=== PATIENT | female | born 1960 | race Caucasian/White ===

== ENCOUNTER → 2017-04-12 | Outpatient (CLI) | payer OTHER | LOC: GIMAGING 11:59 | PROVIDERS: ATTEND Nurse Practitioner Family | DX: J18.9 Pneumonia, unspecified organism (principal) | CPT/HCPCS: 71020-PO ==

== ENCOUNTER 2017-04-14 19:05 | Inpatient (IN) | payer OTHER ==
[2017-04-14] MEDS ORDERED: NS 1,000 ML IV ONE (19:14)
--- NOTE | 2017-04-14 19:16 | EDPHY ---
H & P Time Seen by Provider: 04/14/17 19:05 HPI/ROS: CHIEF COMPLAINT: Pneumonia HISTORY OF PRESENT ILLNESS: Patient is a 56-year-old female who is brought by EMS for shortness of breath and pneumonia. She states that over the last week she has developed a cough and shortness of breath. She saw her doctor a few days ago who started her on azithromycin and Ventolin and diagnosed pneumonia on x-ray. She does not have any history of COPD or asthma or respiratory disease. Cardiac history. She states that her symptoms have continued to worsen. Today when EMS arrived her room air sats were 86%. Her blood pressure was borderline low. She was not tachycardic. Mom states that she has been weak and fell at home. She hit her head on the cabinet and has a small abrasion to the right parietal area that is not require sutures. REVIEW OF SYSTEMS: Constitutional: denies: chills, fever, recent illness, recent injury EENTM: denies: blurred vision, double vision, nose congestion Respiratory: See HPI Cardiac: denies: chest pain, irregular heart rate, lightheadedness, palpitations Gastrointestinal/Abdominal: denies: abdominal pain, diarrhea, nausea, vomiting, blood streaked stools Genitourinary: denies: dysuria, frequency, hematuria, pain Musculoskeletal: denies: joint pain, muscle pain Skin: denies: lesions, rash, jaundice, bruising Neurological: denies: headache, numbness, paresthesia, tingling, dizziness, weakness Hematologic/Lymphatic: denies: blood clots, easy bleeding, easy bruising Immunologic/allergic: denies: HIV/AIDS, transplant EXAM: GENERAL: Well-appearing, well-nourished and in no acute distress. HEAD: Very small laceration to right parietal area. Does not require sutures. No hematoma or crepitus. EYES: Pupils equal round and reactive to light, extraocular movements intact, sclera anicteric, conjunctiva are normal. ENT: TMs normal, nares patent, oropharynx clear without exudates. Moist mucous membranes. NECK: Normal range of motion, supple without lymphadenopathy or JVD. LUNGS: Left lower lobe rhonchi HEART: Regular rate and rhythm without murmurs, rubs or gallops. ABDOMEN: Soft, nontender, normoactive bowel sounds. No guarding, no rebound. No masses appreciated. BACK: No CVA tenderness, no spinal tenderness, step-offs or deformities EXTREMITIES: Normal range of motion, no pitting or edema. No clubbing or cyanosis. NEUROLOGICAL: Cranial nerves II through XII grossly intact. Normal speech, normal gait. 5/5 strength, normal movement in all extremities, normal sensation PSYCH: Normal mood, normal affect. SKIN: Warm, dry, normal turgor, no visible rashes or lesions. Source: Patient Exam Limitations: No limitations - Medical/Surgical History Hx Asthma: No Hx Chronic Respiratory Disease: No Hx Diabetes: Yes Hx Cardiac Disease: No Hx Renal Disease: No Hx Cirrhosis: No Hx Alcoholism: No Other PMH: Bipolar, pre diabetes - Family History Significant Family History: No pertinent family hx - Social History Smoking Status: Never smoked Alcohol Use: Sober Drug Use: None Constitutional: Initial Vital Signs Temperature (C) 37.7 C 04/14/17 19:14 Heart Rate 73 04/14/17 19:14 Respiratory Rate 14 04/14/17 19:14 Blood Pressure 79/52 L 04/14/17 19:14 O2 Sat (%) 87 L 04/14/17 19:14 O2 Delivery Mode Nasal Cannula O2 (L/minute) 2 Allergies/Adverse Reactions: tape Allergy (Uncoded 04/14/17 19:19) Home Medications: Medication Instructions Recorded Clozapine 04/14/17 Divalproex 04/14/17 LaMICtal 04/14/17 Latuda 04/14/17 Levothyroxine 04/14/17 Martin'S Additions Carbonate 04/14/17 Metformin HCl 04/14/17 Metoprolol Succinate 04/14/17 Zyprexa 04/14/17 Medical Decision Making - Diagnostics Imaging Results: Imaging Impressions Chest X-Ray 04/14/17 19:12 Impression: Worsening left lower lobe pneumonia. Imaging: I viewed and interpreted images myself Procedures: Procedure: Ultrasound guidance: Using the linear probe covered in a sterile sheath, a short axis of the vein was obtained. The vein was completely compressible and was identified as separate from the adjacent non-compressible arterial structure. Under real-time guidance, the introducer needle was observed up to the vein, and then punctured it. These images were saved on the database. Central line placement: The indication for the procedure was sepsis shock. After verbal informed consent from patient; the risks were explained including bleeding, infection, and collapsed lung. Maximal sterile barrier technique was uses including cap, gown, sterile gloves, large sheet, hand washing and chlorhexidine prep. The area anesthetized with 1% lidocaine. The right IJ was punctured with a 19 gauge finder needle, then a wire introducer was placed, a triple-lumen was placed using Seldinger technique. There were no complications. Blood return low pressure, dark blood. The patient tolerated procedure well. CXR results: Line in good placement as interpreted by myself. Radiologist interpretation is pending. The procedure was performed by myself. ED Course/Re-evaluation: the patient is in septic shock. She is remaining hypotensive despite 2 and 0.5 L of fluid. Her blood pressure is currently 87/60. I have placed a central line and will start her on Levophed. I spoke with Dr. Dione Caballero who will admit to the medical service. She is a community-acquired pneumonia. Differential Diagnosis: Partial list of the Differential diagnosis considered include but were not limited to pneumonia, septic shock, and although unlikely based on the history and physical exam, I also considered is PE, is acute coronary disease, COPD. Critical Care Time: Critical care time spent by me, Dr. Gambino exclusive with this patient was 35 minutes, exclusive of the PA time exclusive of procedures. The organ system that was at risk was pulmonary and I gave IV fluids, antibiotics, pressors, central line, consultation and admission to prevent worsening of the patient's condition - Data Points Laboratory Results: Laboratory Results 04/14/17 19:11 04/14/17 19:11 04/14/17 04/14/17 04/14/17 19:25 19:11 19:11 WBC RBC Hgb Hct MCV MCH MCHC RDW Plt Count MPV Neut % (Auto) Lymph % (Auto) [place] % (Auto) Eos % (Auto) Baso % (Auto) Nucleat RBC Rel Count Absolute Neuts (auto) Absolute Lymphs (auto) Absolute Monos (auto) Absolute Eos (auto) Absolute Basos (auto) Absolute Nucleated RBC Immature Gran % Seg Neutrophils % Band Neutrophils % Lymphocytes % Monocytes % Metamyelocytes % Immature Gran # Absolute Seg Neuts Absolute Band Neuts Absolute Lymphocytes Absolute Monocytes Absolute Metamyelocyte RBC/WBC/PLT Morphology Atypical Lymphocytes Platelet Estimate PT 12.7 SEC SEC (12.0-15.0) INR 0.96 (0.83-1.16) APTT 25.5 SEC SEC (23.0-38.0) VBG Lactic Acid 1.8 mmol/L mmol/L (0.7-2.1) Sodium 128 mEq/L L mEq/L (134-144) Potassium 5.4 mEq/L H mEq/L (3.5-5.2) Chloride 96 mEq/L L mEq/L (97-110) Carbon Dioxide 25 mEq/l mEq/l (22-31) Anion Gap 7 mEq/L L mEq/L (8-16) BUN 30 mg/dL H mg/dL (7-23) Creatinine 3.5 mg/dL H mg/dL (0.6-1.0) Estimated GFR 14 Glucose 110 mg/dL H mg/dL (70-100) Calcium 8.3 mg/dL L mg/dL (8.5-10.4) Total Bilirubin 0.5 mg/dL mg/dL (0.1-1.4) 04/14/17 19:11 WBC 24.91 10^3/uL H 10^3/uL (3.80-9.50) RBC 3.62 10^6/uL L 10^6/uL (4.18-5.33) Hgb 11.1 g/dL L g/dL (12.6-16.3) Hct 33.9 % L % (38.0-47.0) MCV 93.6 fL fL (81.5-99.8) MCH 30.7 pg pg (27.9-34.1) MCHC 32.7 g/dL g/dL (32.4-36.7) RDW 14.2 % % (11.5-15.2) Plt Count 240 10^3/uL 10^3/uL (150-400) MPV 9.0 fL fL (8.7-11.7) Neut % (Auto) Not Reported Lymph % (Auto) Not Reported [place] % (Auto) Not Reported Eos % (Auto) Not Reported Baso % (Auto) Not Reported Nucleat RBC Rel Count 0.0 % % (0.0-0.2) Absolute Neuts (auto) Not Reported Absolute Lymphs (auto) Not Reported Absolute Monos (auto) Not Reported Absolute Eos (auto) Not Reported Absolute Basos (auto) Not Reported Absolute Nucleated RBC 0.00 10^3/uL 10^3/uL (0-0.01) Immature Gran % Not Reported Seg Neutrophils % 61 % % Band Neutrophils % 22 % % Lymphocytes % 14 % % Monocytes % 2 % % Metamyelocytes % 1 % % Immature Gran # Not Reported Absolute Seg Neuts 15.20 10^/uL H 10^/uL (1.70-6.50) Absolute Band Neuts 5.48 10^3/uL H 10^3/uL (0.00-0.70) Absolute Lymphocytes 3.49 10^3/uL H 10^3/uL (1.00-3.00) Absolute Monocytes 0.50 10^3/uL 10^3/uL (0.30-0.80) Absolute Metamyelocyte 0.25 10^3/mL H 10^3/mL (0.00-0.00) RBC/WBC/PLT Morphology NORMAL (NORMAL) Atypical Lymphocytes 1+ H Platelet Estimate ADEQUATE (ADEQ) PT INR APTT VBG Lactic Acid Sodium Potassium Chloride Carbon Dioxide Anion Gap BUN Creatinine Estimated GFR Glucose Calcium Total Bilirubin Medications Given: Discontinued Medications Sodium Chloride (Ns) 1,000 mls @ 0 mls/hr IV ONCE ONE PRN Reason: Wide Open Stop: 04/14/17 19:15 Last Admin: 04/14/17 19:23 Dose: 1,000 mls Norepinephrine 4 mg/ Sodium (Chloride) 500 mls @ 0 mls/hr IV EDNOW ONE; Titrate PRN Reason: Protocol Stop: 04/14/17 20:05 Last Admin: 04/14/17 20:07 Dose: 500 mls Norepinephrine/Sodium Chloride (Norepinephrine 8 Mcg/Ml (Premix)) 500 mls @ 0 mls/hr IV EDNOW ONE; Per Protocol PRN Reason: Protocol Stop: 04/14/17 20:31 Last Admin: 04/14/17 20:32 Dose: 500 mls Departure - Departure Disposition: [facility] Inpatient Acute Clinical Impression: Septic shock Pneumonia Qualifiers: Pneumonia type: due to unspecified organism Laterality: left Lung location: unspecified part of lung Qualified Code(s): J18.9 - Pneumonia, unspecified organism Condition: Critical
[2017-04-14 19:18] LABS: ADD DIFF? YES; ADD MORPH? NO; ADD SCAN? NO; ATYPICAL LYMPHOCYTE FLAG 30 (0-99); FRAGMENT RBC FLAG 0 (0-99); HEMATOCRIT 33.9 % (38.0-47.0); HEMOGLOBIN 11.1 g/dL (12.6-16.3); LEFT SHIFT FLG 90 (0-99); LIPEMIA HEMOLYSIS FLAG 80 (0-99); MEAN CELL HEMOGLOBIN 30.7 pg (27.9-34.1); MEAN CELL HEMOGLOBIN CONCENTR. 32.7 g/dL (32.4-36.7); MEAN CELL VOLUME 93.6 fL (81.5-99.8); PLATELET CLUMPS FLAG 30 (0-99); PLATELET COUNT 240 10^3/uL (150-400); RED BLOOD CELL COUNT 3.62 10^6/uL (4.18-5.33); RED CELL DISTRIBUTION WIDTH 14.2 % (11.5-15.2)
[2017-04-14 19:28] LABS: ANION GAP 7 mEq/L (8-16); BILIRUBIN,TOTAL 0.5 mg/dL (0.1-1.4); CALCIUM 8.3 mg/dL (8.5-10.4); CARBON DIOXIDE 25 mEq/l (22-31); CHLORIDE 96 mEq/L (97-110); CREATININE 3.5 mg/dL (0.6-1.0); GLOMERULAR FILTRATION RATE 14; GLUCOSE 110 mg/dL (70-100); POTASSIUM 5.4 mEq/L (3.5-5.2); SODIUM 128 mEq/L (134-144)
[2017-04-14 19:34] LABS: INR 0.96 (0.83-1.16); PROTIME(PATIENT) 12.7 SEC (12.0-15.0)
[2017-04-14 19:35] LABS: APTT 25.5 SEC (23.0-38.0)
[2017-04-14] MEDS ORDERED: NS 2,800 ML IV ONE (19:36)
[2017-04-14 19:47] LABS: PLATELET ESTIMATE ADEQUATE (ADEQ)
[2017-04-14] MEDS ORDERED: NOREPINEPHRINE 4 MG/4 ML INJ IV ONE (20:03)
[2017-04-14] MEDS ORDERED: NOREPINEPHRINE BITARTRATE 4 MG in NS 500 ML IV ONE (20:04)
[2017-04-14] MEDS ORDERED: NOREPINEPHRINE/NS 4 MG/500 ML BAG IV ONE (20:06)
[2017-04-14] MEDS ORDERED: NOREPINEPHRINE/NS 500 ML IV ONE (20:30)
[2017-04-14] MEDS ORDERED: ACETAMINOPHEN 325 MG TAB PO PRN (21:45)
--- NOTE | 2017-04-14 22:21 | GHP ---
[f rep st] HISTORY AND PHYSICAL DATE OF ADMISSION: 04/14/2017 CHIEF COMPLAINT: Shortness of breath and cough. HISTORY: The patient is a 56-year-old female who has had shortness of breath and cough for the last week. She went to urgent care on Saturday and was prescribed azithromycin and a Ventolin inhaler. S he has been taking the antibiotics for the last 3 days without improvement. She has a pretty severe cough which has recently become more productive. She has been very dizzy which has led to weakness and falls at home. She has had a low-grade fever. She has had diarrhea and vomiting x1 day with s ome persistent nausea. In the ER, she was found to be critically ill, hypotensive despite IV fluid bolus. A central line was placed and she was started on pressors. PAST MEDICAL HISTORY: 1. Bipolar. 2. Hyperglycemia secondary to psychiatric medications. 3. Tremor. PAST SURGICAL HISTORY: Back surgery. MEDICATIONS: Please see computerized record for full, detailed list. ALLERGIES: Tape. SOCIAL HISTORY: No smoking. No alcohol. She lives with her mom. REVIEW OF SYSTEMS: A complete review of systems was obtained. Review of systems was negative regar ding constitutional, HEENT, GI, pulmonary, cardiovascular, , hematology, skin, muscular, endocrine , psych, except for positives and negatives as in HPI. FAMILY HISTORY: Reviewed and noncontributory to presenting complaint. PHYSICAL EXAMINATION: GENERAL: A well-developed, well-nourished female, in no acute distress. VIT AL SIGNS: Temperature is 37.7, pulse 73, blood pressure 79/52, saturating 87% on room air. HEENT: Eye examination: Normal conjunctivae. Pupils reactive to light. ENT: Normal ears and nose. Hea ring intact. Normal lips and teeth. Oropharynx moist. NECK: Trachea midline. No thyromegaly. C HEST: Normal respiratory effort. LUNGS: Clear to auscultation bilaterally. CARDIOVASCULAR: Regu lar rhythm. No murmur. No lower extremity edema. ABDOMEN: Soft, nontender. No hepatosplenomegal y. SKIN: Warm, dry, intact. No rash. MUSCULOSKELETAL: No cyanosis or clubbing. Strength is 5/5 in upper and lower extremities. NEUROLOGIC: Cranial nerves intact. Normal sensation to light verónica ch. PSYCH: Alert oriented x3. Normal affect. Normal judgment. Normal memory. LABORATORY DATA: White count 24.9, 22% bands, hematocrit 33.9, platelets 240. Sodium 128, potassiu m 5.4, chloride 96, bicarb 25, BUN 30, creatinine 3.5, glucose 110. INR 0.96. Lactate 1.8. Chest x-ray reviewed by me: My personal interpretation is quite severe left-sided pneumonia. ASSESSMENT AND PLAN: 1. Septic shock. She is requiring a Levophed drip. We will monitor central venous pressure. She has been appropriately IV fluid bolused in the emergency room. Will continue IV fluid/normal saline and additional boluses as needed to get a central venous pressure at goal. Will follow serial lact ates. 2. Pneumonia. She has failed oral azithromycin. Will change her to IV Levaquin. Will check a spu ankur. 3. Acute renal failure. This is due to her sepsis. I anticipate this will improve with appropriat e resuscitation. However, renal ultrasound can be obtained if this fails to occur. 4. Acute respiratory failure. Continue oxygen. 5. Bipolar. She has an extensive medication list. This needs to be reconciled. Will check a lith ium level. 6. Deep venous thrombosis prophylaxis. She is high risk. I will prescribe subcutaneous heparin. CODE STATUS: Full. ADMISSION STATUS: Will admit to inpatient. She is critically ill. Anticipate greater than 2 midni ghts for stabilization. BILLING: Critical care time spent is 45 minutes. /[id number]/MODL
[2017-04-14] MEDS: HEPARIN 5,000 UNIT/0.5 ML SYR SC SCH (23:46)
[2017-04-14] MEDS: NOREPINEPHRINE/NS 500 ML IV SCH (23:51)
[2017-04-15 00:35] LABS: MIXED VENOUS O2 SATURATION 73 % (65-75)
[2017-04-15] MEDS: NOREPINEPHRINE/NS 500 ML IV SCH ×2 (02:32→06:26)
[2017-04-15 04:57] LABS: ADD DIFF? YES; ADD MORPH? NO; ADD SCAN? NO; ATYPICAL LYMPHOCYTE FLAG 10 (0-99); FRAGMENT RBC FLAG 0 (0-99); HEMATOCRIT 28.6 % (38.0-47.0); HEMOGLOBIN 9.3 g/dL (12.6-16.3); LEFT SHIFT FLG 40 (0-99); LIPEMIA HEMOLYSIS FLAG 80 (0-99); MEAN CELL HEMOGLOBIN CONCENTR. 32.5 g/dL (32.4-36.7); MEAN CELL VOLUME 95.3 fL (81.5-99.8); MEAN PLATELET VOLUME 8.7 fL (8.7-11.7); PLATELET CLUMPS FLAG 0 (0-99); PLATELET COUNT 203 10^3/uL (150-400); RED CELL DISTRIBUTION WIDTH 14.3 % (11.5-15.2)
[2017-04-15 05:03] LABS: ALANINE AMINOTRANSFERASE 37 IU/L (9-52); ALBUMIN 2.6 g/dL (3.5-5.0); ALKALINE PHOSPHATASE 95 IU/L (38-126); ANION GAP 6 mEq/L (8-16); ASPARTATE AMINOTRANSFERASE 26 IU/L (14-46); BILIRUBIN,TOTAL 0.3 mg/dL (0.1-1.4); BILIRUBIN-CONJUGATED 0.3 mg/dL (0.0-0.5); CALCIUM 6.8 mg/dL (8.5-10.4); CARBON DIOXIDE 21 mEq/l (22-31); CHLORIDE 104 mEq/L (97-110); CREATININE 2.5 mg/dL (0.6-1.0); GLOMERULAR FILTRATION RATE 20; GLUCOSE 101 mg/dL (70-100); POTASSIUM 4.6 mEq/L (3.5-5.2); SODIUM 131 mEq/L (134-144); TOTAL PROTEIN 4.7 g/dL (6.3-8.2)
[2017-04-15 05:10] LABS: LITHIUM 2.5 mEq/L (0.6-1.2)
[2017-04-15 05:43] LABS: PLATELET ESTIMATE ADEQUATE (ADEQ)
[2017-04-15] MEDS: HEPARIN 5,000 UNIT/0.5 ML SYR SC SCH ×2 (06:26→13:44)
--- NOTE | 2017-04-15 08:42 | CPEKG ---
Heart Rate: 76 RR Interval: 789 P-R Interval: 176 QRSD Interval: 104 QT Interval: 436 QTC Interval: 491 P Jarrell: 40 QRS Jarrell: 7 T Wave Jarrell: -22 EKG Severity - ABNORMAL ECG - EKG Impression: SINUS RHYTHM EKG Impression: NONSPECIFIC T ABNORMALITIES, INFERIOR LEADS EKG Impression: BORDERLINE PROLONGED QT INTERVAL Electronically Signed By: Maria G Michelle 15-Apr-2017 17:24:41
--- NOTE | 2017-04-15 08:55 | HOSPPROG ---
Hospitalist Progress Note Assessment/Plan: #Septic shock: due to PNA. Change to CTZ/Azithro. Weaned off Levophed this morning. Lactate NL. #CAP: abx as above #Acute blood loss anemia: rectal bleeding this morning. h/o hemorrhoids. Repeat H/H stable #LARRY: due to shock + [place] toxicity. Cont IVFs. Renally-dose medications #Tremors: has at baseline, but exacerbated with elevated lithium #Hypocalcemia: replete PRN #Leukocytosis: improving with IV abx #Bipolar d/o: renally-dose meds with LARRY #Hypothyroidism: LT4 #Diet: regular #DVT ppx: SCDs #Disp: warrants inpt admission with sepsis. Cont IVFs, abx Subjective: persistent cought. Tremors worse than baseline Objective: Vital Signs Temp Pulse Resp BP Pulse Ox 37.2 C 75 12 113/62 97 04/15/17 04:00 04/15/17 06:50 04/15/17 06:50 04/15/17 06:50 04/15/17 06:50 Microbiology 04/15/17 05:20 Respiratory Panel (PCR) - Final Nasal, Sinus - Swab No Organism Detected Laboratory Results 04/15/17 04:40 04/15/17 04:40 04/14/17 04/15/17 04/16/17 05:59 05:59 05:59 Intake Total 5060 Output Total 400 Balance 4660 PT 12.7 SEC (12.0-15.0) 04/14/17 19:11 INR 0.96 (0.83-1.16) 04/14/17 19:11 - Physical Exam Constitutional: obese Eyes: PERRL Ears, Nose, Mouth, Throat: moist mucous membranes Cardiovascular: regular rate and rhythym, tachycardia Respiratory: no respiratory distress, rhonchi (bilaterally) Gastrointestinal: normoactive bowel sounds, soft, non-tender abdomen, no palpable masses Genitourinary: no bladder fullness Skin: warm Musculoskeletal: full muscle strength Neurologic: AAOx3, CN II-XII Intact, other (UE tremors ) Psychiatric: interacting appropriately, not encephalopathic Lymph, Heme, Immunologic: no cervical LAD ICD10 Worksheet Patient Problems: Problems Problem Status Onset Pneumonia Acute Septic shock Acute
[2017-04-15] MEDS ORDERED: NON-FORMULARY NEW DRUG (Albuterol 2 PUFFS) IH PRN (08:59)
[2017-04-15] MEDS ORDERED: ENOXAPARIN 40 MG/0.4 ML SYR SC SCH (09:00)
[2017-04-15] MEDS ORDERED: NON-FORMULARY NEW DRUG (Calcium Carbonate/Vitamin D3 [Calcium 600 + Vit D Tablet] 1 EACH) PO SCH (09:00)
[2017-04-15] MEDS ORDERED: ALBUTEROL 200 PUFFS/18 GM MDI IH PRN (09:30)
[2017-04-15] MEDS: CALCIUM CARB W/VIT D 500 MG TAB PO SCH (10:51)
[2017-04-15] MEDS: NS 1,000 ML IV SCH ×2 (11:44→19:29)
[2017-04-15] MEDS: AZITHROMYCIN 250 MG TAB PO SCH (11:49)
[2017-04-15 11:57] LABS: HEMATOCRIT 28.6 % (38.0-47.0); HEMOGLOBIN 9.2 g/dL (12.6-16.3)
[2017-04-15] MEDS: guaiFENesin/CODEINE PHOS 10 ML UDCUP PO PRN ×2 (13:44→23:18)
[2017-04-15] MEDS: SCOPOLAMINE HYDROBROMIDE 1.5 MG PATCH TD SCH (15:44)
[2017-04-15] MEDS: cloZAPine 25 MG TAB PO SCH (18:16)
[2017-04-15] MEDS: DIVALPROEX ER 500 MG TAB PO SCH (18:17)
[2017-04-15] MEDS: LEVOTHYROXINE 150 MCG TAB PO SCH (22:03)
[2017-04-15] MEDS ORDERED: VANCOMYCIN HCL/NORMAL SALINE 250 ML IV ONE (22:27)
[2017-04-15] MEDS: OLANZapine 10 MG TAB PO PRN (23:18)
[2017-04-16 05:08] LABS: HEMATOCRIT 28.6 % (38.0-47.0); HEMOGLOBIN 9.1 g/dL (12.6-16.3); MEAN CELL HEMOGLOBIN 30.6 pg (27.9-34.1); MEAN CELL HEMOGLOBIN CONCENTR. 31.8 g/dL (32.4-36.7); MEAN CELL VOLUME 96.3 fL (81.5-99.8); RED BLOOD CELL COUNT 2.97 10^6/uL (4.18-5.33); RED CELL DISTRIBUTION WIDTH 13.8 % (11.5-15.2)
[2017-04-16 05:45] LABS: ANION GAP 7 mEq/L (8-16); CALCIUM 8.3 mg/dL (8.5-10.4); CARBON DIOXIDE 22 mEq/l (22-31); CHLORIDE 111 mEq/L (97-110); GLOMERULAR FILTRATION RATE 58; GLUCOSE 84 mg/dL (70-100); LITHIUM 1.3 mEq/L (0.6-1.2); POTASSIUM 4.4 mEq/L (3.5-5.2); SODIUM 140 mEq/L (134-144)
[2017-04-16] MEDS: CALCIUM CARB W/VIT D 500 MG TAB PO SCH (08:30)
[2017-04-16] MEDS: AZITHROMYCIN 250 MG TAB PO SCH (08:30)
[2017-04-16] MEDS ORDERED: PNEUMOCOCCAL 0.5ML VACCINE VIAL IM ONE (08:32)
[2017-04-16 09:05] LABS: COLOR PALE YELLOW; LEUKOCYTE ESTERASE,URINE NEGATIVE (NEGATIVE); NITRITE,URINE NEGATIVE (NEGATIVE)
[2017-04-16 09:13] LABS: BACTERIA TRACE /hpf (NONE SEEN); MUCUS TRACE /lpf (NONE-1+); RBC,URINE 15-25 /hpf (0-3)
[2017-04-16] MEDS: CEPACOL LOZENGE PO PRN (13:28)
[2017-04-16] MEDS ORDERED: POLYETHYLENE GLYCOL 3350 17 GM PKT PO PRN (13:32)
[2017-04-16] MEDS ORDERED: LACTULOSE 20 GM/30 ML UDCUP PO PRN (13:32)
[2017-04-16] MEDS ORDERED: BISACODYL 10 MG SUPP PR PRN (13:32)
[2017-04-16] MEDS ORDERED: MAGNESIUM HYDROXIDE 30 ML UDCUP PO PRN (13:32)
--- NOTE | 2017-04-16 15:58 | HOSPPROG ---
Hospitalist Progress Note Assessment/Plan: #Septic shock: Resolved, now off pressors. Due to PNA. CTX/Azithro #CAP: Day 3/. Change to LQ #Acute blood loss anemia: rectal bleeding this morning. h/o hemorrhoids. Repeat H/H stable #LARRY: resolved with IVFs. #[place] toxicity: due to dehydration, LARRY. Spoke with her psychiatrist on phone. Will restart [place] at DC at 450mg #Tremors: has at baseline, but exacerbated with elevated lithium #Hypocalcemia: repleted #Leukocytosis: resolved #Bipolar d/o: resume all meds, exceot lithium. Will restart at 450mg when normal level #Hypothyroidism: LT4 #Diet: regular #DVT ppx: SCDs #Disp: warrants inpt admission with sepsis. Cont IVFs, abx Subjective: nonproductive cough Objective: Vital Signs Temp Pulse Resp BP Pulse Ox 36.8 C 74 20 144/62 H 95 04/16/17 11:26 04/16/17 11:26 04/16/17 11:26 04/16/17 11:26 04/16/17 11:26 Laboratory Results 04/16/17 04:49 04/16/17 04:49 04/15/17 04/16/17 04/17/17 05:59 05:59 05:59 Intake Total 2110 6370 1305 Output Total 048 345 1786 Balance 1710 6070 105 PT 12.7 SEC (12.0-15.0) 04/14/17 19:11 INR 0.96 (0.83-1.16) 04/14/17 19:11 - Physical Exam Constitutional: other (appears brighter) Eyes: PERRL Ears, Nose, Mouth, Throat: moist mucous membranes Cardiovascular: regular rate and rhythym Respiratory: no respiratory distress, rhonchi Gastrointestinal: normoactive bowel sounds Genitourinary: no bladder fullness Skin: warm Musculoskeletal: full muscle strength Neurologic: AAOx3, CN II-XII Intact, other (tremor persists, but less) Psychiatric: interacting appropriately ICD10 Worksheet Patient Problems: Problems Problem Status Onset Pneumonia Acute Septic shock Acute
[2017-04-16 17:09] LABS: ANION GAP 4 mEq/L (8-16); CALCIUM 8.6 mg/dL (8.5-10.4); CARBON DIOXIDE 24 mEq/l (22-31); CHLORIDE 107 mEq/L (97-110); CREATININE 0.8 mg/dL (0.6-1.0); GLOMERULAR FILTRATION RATE > 60; GLUCOSE 115 mg/dL (70-100); SODIUM 135 mEq/L (134-144)
[2017-04-16] MEDS: LURASIDONE HCL 80 MG TAB PO SCH (17:53)
[2017-04-16] MEDS: cloZAPine 25 MG TAB PO SCH (17:53)
[2017-04-16] MEDS: DIVALPROEX ER 500 MG TAB PO SCH (17:53)
[2017-04-16] MEDS: guaiFENesin/CODEINE PHOS 10 ML UDCUP PO PRN (18:56)
[2017-04-16] MEDS: SENNOSIDES/DOCUSATE SODIUM TAB PO SCH (20:33)
[2017-04-16] MEDS: LEVOTHYROXINE 150 MCG TAB PO SCH (20:33)
[2017-04-17] MEDS: BENZONATATE 100 MG CAP PO PRN ×2 (06:00→18:11)
[2017-04-17 06:22] LABS: HEMATOCRIT 27.8 % (38.0-47.0); HEMOGLOBIN 9.2 g/dL (12.6-16.3); MEAN CELL HEMOGLOBIN 31.1 pg (27.9-34.1); MEAN CELL HEMOGLOBIN CONCENTR. 33.1 g/dL (32.4-36.7); MEAN CELL VOLUME 93.9 fL (81.5-99.8); RED BLOOD CELL COUNT 2.96 10^6/uL (4.18-5.33); RED CELL DISTRIBUTION WIDTH 13.4 % (11.5-15.2)
[2017-04-17 06:48] LABS: ANION GAP 4 mEq/L (8-16); CALCIUM 8.7 mg/dL (8.5-10.4); CARBON DIOXIDE 25 mEq/l (22-31); CHLORIDE 107 mEq/L (97-110); CREATININE 0.8 mg/dL (0.6-1.0); GLOMERULAR FILTRATION RATE > 60; GLUCOSE 90 mg/dL (70-100); LITHIUM 0.9 mEq/L (0.6-1.2); POTASSIUM 4.4 mEq/L (3.5-5.2); SODIUM 136 mEq/L (134-144)
[2017-04-17] MEDS ORDERED: AZITHROMYCIN 250 MG TAB PO SCH (09:00)
[2017-04-17] MEDS: LURASIDONE HCL 80 MG TAB PO SCH (09:12)
[2017-04-17] MEDS: CALCIUM CARB W/VIT D 500 MG TAB PO SCH (09:12)
[2017-04-17] MEDS: SENNOSIDES/DOCUSATE SODIUM TAB PO SCH ×2 (09:12→21:24)
[2017-04-17] MEDS: CHOLECALCIFEROL VIT D3 2,000 UNITS TAB/CAP PO SCH (09:12)
[2017-04-17] MEDS: guaiFENesin/CODEINE PHOS 10 ML UDCUP PO PRN ×2 (09:13→18:11)
[2017-04-17] MEDS: ONDANSETRON 4 MG/2 ML VIAL IVP PRN (10:32)
[2017-04-17] MEDS: OLANZapine 10 MG TAB PO PRN (13:48)
--- NOTE | 2017-04-17 14:14 | HOSPPROG ---
Hospitalist Progress Note Assessment/Plan: 56-year-old female admitted with sepsis and left lower lobe pneumonia. Patient is new to me today #Septic shock: Resolved, now off pressors. Due to PNA. CTX/Azithro #CAP: Day 3/. Change to LQ, Levaquin day #2. she has coughing bouts when she takes a deep breath the CHF a is not working well. I will change her to duo nebs four times daily. #Acute blood loss anemia: rectal bleeding this morning. h/o hemorrhoids. Repeat H/H stable #LARRY: resolved with IVFs. #[place] toxicity: due to dehydration, LARRY. Spoke with her psychiatrist on phone. Will restart [place] at DC at 450mg #Tremors: has at baseline, but exacerbated with elevated lithium #Hypocalcemia: repleted #Leukocytosis: resolved #Bipolar d/o: resume all meds, exceot lithium. Will restart at 450mg when normal level #Hypothyroidism: LT4 #Diet: regular #DVT ppx: SCDs Plan - change HFA Proventil 2 duo nebs four times daily. Encourage pulmonary care with incentive spirometer and walking. - Bipolar disorder appears to be stable. - Disposition: Patient will be discharged home in 1-2 days. Subjective: Feeling slightly better but has coughing bouts whenever she takes a deep breath. Thus using the incentive spirometer and the HFA Proventil is difficult as a causes coughing bouts. No chest pain. She has a poor appetite probably secondary to her acute illness. No swallowing difficulties. Objective: Vital Signs Temp Pulse Resp BP Pulse Ox 36.8 C 79 16 154/74 H 91 L 04/17/17 11:42 04/17/17 11:42 04/17/17 11:42 04/17/17 11:42 04/17/17 11:42 Laboratory Results 04/17/17 06:00 04/17/17 06:00 04/16/17 04/17/17 04/18/17 05:59 05:59 05:59 Intake Total 6370 2505 Output Total 300 1200 Balance 6070 1305 PT 12.7 SEC (12.0-15.0) 04/14/17 19:11 INR 0.96 (0.83-1.16) 04/14/17 19:11 - Time Spent With Patient Time Spent with Patient: greater than 35 minutes Time Spent with Patient: Greater than 35 minutes spent on this patients care, greater than 50% of time spent counseling, educating, and coordinating care regarding the above mentioned plan. - Pending Discharge Pending Discharge Within 24 Hours: No Pending Discharge Within 48 Hours: Yes Pending Discharge Date: 04/19/17 Pending Discharge Time: 11:00 - Physical Exam Constitutional: no apparent distress Eyes: PERRL, anicteric sclera Ears, Nose, Mouth, Throat: moist mucous membranes, hearing normal Cardiovascular: regular rate and rhythym, no murmur, rub, or gallop Respiratory: no respiratory distress, reduced air movement, expiratory wheeze, inspiratory crackles, bronchial breath sounds Gastrointestinal: normoactive bowel sounds, soft, non-tender abdomen Genitourinary: no bladder fullness Musculoskeletal: full muscle strength Neurologic: AAOx3, CN II-XII Intact Psychiatric: interacting appropriately ICD10 Worksheet Patient Problems: Problems Problem Status Onset Pneumonia Acute Septic shock Acute
[2017-04-17] MEDS: guaiFENesin 600 MG TAB.ER PO SCH ×2 (16:15→21:24)
[2017-04-17] MEDS: IPRATROPIUM/ALBUTEROL 3 ML DEYVIAL IH SCH ×2 (17:13→21:10)
[2017-04-17] MEDS: DIVALPROEX ER 500 MG TAB PO SCH (18:06)
[2017-04-17] MEDS: cloZAPine 25 MG TAB PO SCH (18:06)
[2017-04-17] MEDS: CEPACOL LOZENGE PO PRN (18:11)
[2017-04-17] MEDS: LEVOTHYROXINE 150 MCG TAB PO SCH (21:24)
[2017-04-18 05:04] LABS: ADD DIFF? YES; ADD MORPH? NO; ADD SCAN? NO; ATYPICAL LYMPHOCYTE FLAG 50 (0-99); FRAGMENT RBC FLAG 0 (0-99); HEMATOCRIT 30.1 % (38.0-47.0); LEFT SHIFT FLG 70 (0-99); LIPEMIA HEMOLYSIS FLAG 80 (0-99); MEAN CELL HEMOGLOBIN 30.9 pg (27.9-34.1); MEAN CELL HEMOGLOBIN CONCENTR. 33.2 g/dL (32.4-36.7); MEAN CELL VOLUME 92.9 fL (81.5-99.8); MEAN PLATELET VOLUME 8.1 fL (8.7-11.7); PLATELET CLUMPS FLAG 0 (0-99); PLATELET COUNT 285 10^3/uL (150-400); RED BLOOD CELL COUNT 3.24 10^6/uL (4.18-5.33); RED CELL DISTRIBUTION WIDTH 13.2 % (11.5-15.2)
[2017-04-18] MEDS: IPRATROPIUM/ALBUTEROL 3 ML DEYVIAL IH SCH ×4 (05:35→20:35)
[2017-04-18 05:42] LABS: PLATELET ESTIMATE ADEQUATE (ADEQ)
[2017-04-18] MEDS: ONDANSETRON 4 MG/2 ML VIAL IVP PRN (08:59)
[2017-04-18] MEDS: LURASIDONE HCL 80 MG TAB PO SCH (08:59)
[2017-04-18] MEDS: guaiFENesin 600 MG TAB.ER PO SCH ×2 (09:00→20:25)
[2017-04-18] MEDS: CALCIUM CARB W/VIT D 500 MG TAB PO SCH (09:00)
[2017-04-18] MEDS: CHOLECALCIFEROL VIT D3 2,000 UNITS TAB/CAP PO SCH (09:00)
[2017-04-18] MEDS: LITHIUM CARBONATE ER 450 MG TAB PO SCH (09:01)
[2017-04-18] MEDS: SENNOSIDES/DOCUSATE SODIUM TAB PO SCH ×2 (09:01→20:25)
[2017-04-18] MEDS ORDERED: ONDANSETRON DISINTEGRATING 4 MG TAB PO PRN (11:49)
[2017-04-18] MEDS ORDERED: PNEUMOCOCCAL 0.5ML VACCINE VIAL IM ONE (12:53)
--- NOTE | 2017-04-18 16:17 | HOSPPROG ---
Hospitalist Progress Note Assessment/Plan: 56-year-old female admitted with sepsis and left lower lobe pneumonia. #Septic shock: Resolved, now off pressors. Due to PNA. CTX/Azithro #CAP: Day 3. Change to LQ, Levaquin day #2. she has coughing bouts when she takes a deep breath the CHF a is not working well. I will change her to duo nebs four times daily. She is improving. -nausea, new problem today: Patient reports intermittent nausea and she says that she has had good use of a scopolamine patch. Will order a patch for her nausea. #Acute blood loss anemia: rectal bleeding this morning. h/o hemorrhoids. Repeat H/H stable #LARRY: resolved with IVFs. #[place] toxicity: due to dehydration, LARRY. Spoke with her psychiatrist on phone. Will restart [place] at DC at 450mg #Tremors: has at baseline, but exacerbated with elevated lithium #Hypocalcemia: repleted #Leukocytosis: resolved #Bipolar d/o: resume all meds, exceot lithium. Will restart at 450mg when normal level #Hypothyroidism: LT4 #Diet: regular #DVT ppx: SCDs Plan - continue current pulmonary care and antibiotics. -disposition: Discharged to home 04/19. Subjective: Reports she is feeling improved for the 1st time in her cough is considerably less. She is no longer having the severe bouts of coughing. Denies fever chest pain. Reports nausea and requests a scopolamine patch. Objective: Vital Signs Temp Pulse Resp BP Pulse Ox 36.4 C 88 18 156/86 H 93 04/18/17 11:19 04/18/17 11:19 04/18/17 11:19 04/18/17 11:19 04/18/17 13:41 Microbiology 04/15/17 06:00 Urine Culture - Final Urine,Clean Catch Three [place] Types Laboratory Results 04/18/17 04:50 04/17/17 06:00 04/17/17 04/18/17 04/19/17 05:59 05:59 05:59 Intake Total 2505 1850 250 Output Total 1200 Balance 1305 1850 250 PT 12.7 SEC (12.0-15.0) 04/14/17 19:11 INR 0.96 (0.83-1.16) 05/14/17 19:11 - Time Spent With Patient Time Spent with Patient: greater than 35 minutes Time Spent with Patient: Greater than 35 minutes spent on this patients care, greater than 50% of time spent counseling, educating, and coordinating care regarding the above mentioned plan. - Pending Discharge Pending Discharge Within 24 Hours: Yes Pending Discharge Date: 04/19/17 Pending Discharge Time: 11:00 - Physical Exam Constitutional: no apparent distress Eyes: PERRL Ears, Nose, Mouth, Throat: moist mucous membranes Cardiovascular: regular rate and rhythym, no murmur, rub, or gallop Respiratory: inspiratory crackles, rhonchi Gastrointestinal: normoactive bowel sounds, soft, non-tender abdomen Skin: warm Musculoskeletal: full muscle strength Neurologic: AAOx3, CN II-XII Intact Psychiatric: interacting appropriately ICD10 Worksheet Patient Problems: Problems Problem Status Onset Pneumonia Acute Septic shock Acute
[2017-04-18] MEDS: SCOPOLAMINE HYDROBROMIDE 1.5 MG PATCH TD SCH (16:29)
[2017-04-18] MEDS ORDERED: LURASIDONE HCL 80 MG TAB PO SCH (18:00)
[2017-04-18] MEDS ORDERED: LITHIUM CARBONATE ER 450 MG TAB PO SCH (18:00)
[2017-04-18] MEDS: metFORMIN HCL 500 MG TAB PO SCH (18:56)
[2017-04-18] MEDS: METOPROLOL TARTRATE 25 MG TAB PO SCH (18:57)
[2017-04-18] MEDS: DICLOFENAC SODIUM 75 MG TAB PO SCH (18:57)
[2017-04-18] MEDS: cloZAPine 25 MG TAB PO SCH (18:57)
[2017-04-18] MEDS: DIVALPROEX ER 500 MG TAB PO SCH (19:05)
[2017-04-18] MEDS: LEVOTHYROXINE 150 MCG TAB PO SCH (20:25)
[2017-04-19 05:29] VITALS: O2SAT 91
[2017-04-19 05:36] LABS: ADD DIFF? YES; ADD MORPH? NO; ADD SCAN? NO; ATYPICAL LYMPHOCYTE FLAG 0 (0-99); FRAGMENT RBC FLAG 0 (0-99); HEMATOCRIT 31.2 % (38.0-47.0); HEMOGLOBIN 10.2 g/dL (12.6-16.3); LEFT SHIFT FLG 80 (0-99); LIPEMIA HEMOLYSIS FLAG 80 (0-99); MEAN CELL HEMOGLOBIN 30.3 pg (27.9-34.1); MEAN CELL HEMOGLOBIN CONCENTR. 32.7 g/dL (32.4-36.7); MEAN CELL VOLUME 92.6 fL (81.5-99.8); MEAN PLATELET VOLUME 8.4 fL (8.7-11.7); PLATELET CLUMPS FLAG 10 (0-99); PLATELET COUNT 329 10^3/uL (150-400); RED BLOOD CELL COUNT 3.37 10^6/uL (4.18-5.33); RED CELL DISTRIBUTION WIDTH 13.6 % (11.5-15.2)
[2017-04-19] MEDS: IPRATROPIUM/ALBUTEROL 3 ML DEYVIAL IH SCH ×3 (05:42→19:40)
[2017-04-19 06:11] LABS: POLYCHROMASIA 1+
[2017-04-19 06:13] LABS: PLATELET ESTIMATE ADEQUATE (ADEQ); TOXIC GRANULATION PRESENT
[2017-04-19 07:45] VITALS: BP 160/75; TEMP 98.5
[2017-04-19] MEDS: ONDANSETRON 4 MG/2 ML VIAL IVP PRN (08:25)
[2017-04-19] MEDS: DICLOFENAC SODIUM 75 MG TAB PO SCH (08:28)
[2017-04-19] MEDS: LURASIDONE HCL 80 MG TAB PO SCH (08:29)
[2017-04-19] MEDS: METOPROLOL TARTRATE 25 MG TAB PO SCH (08:30)
[2017-04-19] MEDS: metFORMIN HCL 500 MG TAB PO SCH (08:30)
[2017-04-19] MEDS: CALCIUM CARB W/VIT D 500 MG TAB PO SCH (08:31)
[2017-04-19] MEDS: CHOLECALCIFEROL VIT D3 2,000 UNITS TAB/CAP PO SCH (08:31)
[2017-04-19] MEDS: LITHIUM CARBONATE ER 450 MG TAB PO SCH (08:32)
[2017-04-19] MEDS: guaiFENesin 600 MG TAB.ER PO SCH (08:32)
[2017-04-19] MEDS: SENNOSIDES/DOCUSATE SODIUM TAB PO SCH (08:32)
[2017-04-19] MEDS ORDERED: MULTIVITAMINS 1 EACH TAB PO SCH (09:00)
[2017-04-19 13:35] VITALS: PULSE 80; RESP 18
--- NOTE | 2017-04-19 13:43 | PDIAF ---
- Diagnosis Code Status: Full Code - Medication Management Discharge Medications: Medications to Continue on Transfer Albuterol [Ventolin Hfa Inhaler] 2 puffs IH Q4 PRN 04/14/17 [Last Taken Unknown] Calcium Carbonate/Vitamin D3 [CALCIUM 600 + VIT D TABLET] 1 each PO DAILY [Last Taken 04/14/17] Cholecalciferol (Vitamin D3) [Vitamin D3] 5,000 unit PO DAILY 04/14/17 [Last Taken 04/14/17] Diclofenac Sodium [Voltaren 75 MG (*)] 75 mg PO BIDMEAL 04/14/17 [Last Taken 18:00] Divalproex ER [Depakote ER 500 MG (*)] 500 mg PO DAILY18 04/14/17 [Last Taken 18:00] Levothyroxine [Synthroid 150 mcg (*)] 150 mcg PO HS 04/14/17 [Last Taken 21:00] [place] Carbonate ER [Eskalith Cr 450 mg (*)] 900 mg PO DAILY18 04/14/17 [Last Taken 04/14/17 18:00] Lurasidone HCl [Latuda] 80 mg PO DAILY18 04/14/17 [Last Taken 04/14/17 18:00] Metoprolol Tartrate [Lopressor 25 mg (*)] 25 mg PO BIDMEAL 04/14/17 [Last Taken 04/14/17 18:00] Multivitamins [Multivitamin (*)] 1 each PO DAILY 04/14/17 [Last Taken 04/14/17] OLANZapine [Zyprexa] 20 - 40 mg PO DAILY PRN 04/14/17 [Last Taken 04/04/17] [place]-3 Fatty Acids [Fif[place] Six-3] 1,000 mg PO BIDMEAL 04/14/17 [Last Taken 04/14/17 18:00] Ranitidine HCl 150 mg PO BIDMEAL 04/14/17 [Last Taken 04/14/17 18:00] cloZAPine [Clozapine] 75 mg PO DAILY18 04/14/17 [Last Taken 04/14/17] metFORMIN HCL [Metformin HCl] 500 mg PO BIDMEAL 04/14/17 [Last Taken 04/14/17 18 :00] Acetaminophen [Tylenol 325mg (*)] 650 mg PO Q4 PRN #0 tab 04/19/17 [Last Taken Unknown] Benzocaine/Menthol / [Cepacol Lozenge] 1 ea PO Q1 PRN #0 lozenge 04/19/17 [ Last Taken Unknown] Benzonatate [Tessalon Pearles] 100 mg PO TID PRN #60 cap 04/19/17 [Last Taken Unknown] Lurasidone HCl [Latuda] 80 mg PO DAILY@0800 tab 04/19/17 [Last Taken Unknown] Salmeterol Diskus [Serevent Diskus (*)] 1 puffs IH BID #1 mdi 04/19/17 [Last Taken Unknown] Scopolamine Hydrobromide [Transderm-Scop] 1.5 mg TD Q72H #7 patch 04/19/17 [ Last Taken Unknown] guaiFENesin [Mucinex 600 MG (*)] 1,200 mg PO BID #30 tab.er 04/19/17 [Last Taken Unknown] levOFLOXACIN [levAQUIN (*)] 750 mg PO DAILY AT 10AM #7 tab 04/19/17 [Last Taken Unknown] Discharge Medications: Refer to the Discharge Home Medication list for PRN reason. - Orders Services needed: Home Care, Registered Nurse, Certified Business Development Manager, Physical Therapy, Occupational Therapy Home Care Face to Face: I certify that this patient was under my care and that I had the required [id number] encounter meeting the encounter requirements on the discharge day. My findings support the fact that the patient is homebound as defined in CMS Chapter 7 Medicare Benefits Manual 30.1.1, The condition of the patient is such that there exists a normal inability to leave home and consequently, leaving home would require a considerable and taxing effort. Diet Recommendation: no restrictions on diet Diet Texture: Regular Texture Diet - Labs/Radiology Other Lab Name, Date and Time: lithium level 04/23 - Follow Up Care Current Providers and Referrals: Patient,NotPresent [Unknown] - As per Instructions MILDRED MONTAÑO [Non Staff Provider ()] - follow up in 1 week
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
== END 2017-04-19 16:10 | disposition home or self-care (01) | DRG 871 ==
LOC: EDUNIT# → F2N 21:02 → OBSVTOIN 21:41 → F1N 04-16 11:41
PROVIDERS: ADMIT Internal Medicine; ATTEND Internal Medicine Pulmonary Disease
PROC: 02HV33Z Insertion of Infusion Device into Superior Vena Cava, Percutaneous Approach (ICD-10-PCS; principal; 2017-04-14)
DX: A41.9 Sepsis, unspecified organism (principal); R65.21 Severe sepsis with septic shock; J18.9 Pneumonia, unspecified organism; N17.9 Acute kidney failure, unspecified; J96.00 Acute respiratory failure, unspecified whether with hypoxia or hypercapnia; R73.9 Hyperglycemia, unspecified; T56.891A Toxic effect of other metals, accidental (unintentional), initial encounter; F31.9 Bipolar disorder, unspecified; R25.1 Tremor, unspecified; D62 Acute posthemorrhagic anemia; E83.51 Hypocalcemia; E03.9 Hypothyroidism, unspecified
CPT/HCPCS: 71020-PO; 87449-90; 96365; 97116-GP; 97162-GP; 97165-GO; 97530-GO; 97535-GO; G0009; G8978-GP-CI; G8978-GP-CJ; G8979-GP-CI; G8980-GP-CI; G8987-GO-CK; G8988-GO-CI; J0696; J1956; J2405; J3370

== ENCOUNTER → 2017-05-14 | Outpatient (CLI) | payer OTHER | LOC: GIMAGING 11:17 | PROVIDERS: ATTEND Family Medicine | DX: Z13.83 Encounter for screening for respiratory disorder NEC (principal) | CPT/HCPCS: 71020-PO ==

== ENCOUNTER → 2017-10-09 | Outpatient (CLI) | payer OTHER | LOC: CIMAGING 09:53 | PROVIDERS: ATTEND Family Medicine | DX: Z12.31 Encounter for screening mammogram for malignant neoplasm of breast (principal); Z80.3 Family history of malignant neoplasm of breast | CPT/HCPCS: G0202 ==

== ENCOUNTER → 2017-11-26 | Outpatient (CLI) | payer OTHER | LOC: CIMAGING 15:11 | DX: D25.1 Intramural leiomyoma of uterus (principal) | CPT/HCPCS: 76856-PO ==

== ENCOUNTER → 2018-10-13 | Outpatient (CLI) | payer OTHER | LOC: CIMAGING 14:10 | PROVIDERS: ATTEND Family Medicine | DX: Z12.31 Encounter for screening mammogram for malignant neoplasm of breast (principal); Z80.3 Family history of malignant neoplasm of breast ==

== ENCOUNTER → 2019-01-27 | Outpatient (CLI) | payer OTHER | LOC: BHFA 16:15 | PROVIDERS: ATTEND Internal Medicine Interventional Cardiology | DX: R00.2 Palpitations (principal) ==